=== PATIENT | male | born 1960 | race Caucasian/White ===

== ENCOUNTER → 2021-08-15 08:02 | Outpatient (CLI) | payer BC, SELFPAY ==
--- NOTE | ~2021-08-15 | CT_ITS ---
EXAMINATION: CT lung screening DATE: 08/15/2021 08:49 INDICATION: Personal history of tobacco dependence, current smoker with 20 pack year history TECHNIQUE: Computed tomography (CT) of the chest was performed without intravenous contrast. The dose -length product (DLP) was 299.85 mGy-cm. Automated exposure control and iterative reconstruction tech [employer] were employed. COMPARISON: None FINDINGS: There is mild emphysema. There are nodules measuring up to 2 mm in the right lung apex. The lungs are free of focal airspace opacities. There is mild dependent atelectasis of the right lung. N o pathologically enlarged thoracic lymph nodes are identified. The heart size is normal. A 1.5 cm low -density mass of the right adrenal gland is consistent with an adenoma. Calcified coronary artery ath erosclerosis is noted. There is no pleural effusion or pneumothorax. There is mild thoracic spondylos is. IMPRESSION: 1. Lung-RADS category 2: Benign appearance or behavior. Continue annual screening with noncontrast lo w-dose chest CT in 12 months. An old right fifth rib fracture is noted. Reviewed, dictated and finalized at location A. [facility] [facility] IMPRESSION: 1. Lung-RADS category 2: Benign appearance or behavior. Continue annual screeni ng with noncontrast low-dose chest CT in 12 months. An old right fifth rib frac ture is noted.
== END ==
PROVIDERS: PCP Family Medicine; Visit Provider Physician Assistant
DX: Z87.891 Personal history of nicotine dependence (principal)
CPT/HCPCS: 71271

== ENCOUNTER 2022-10-08 06:56 | Outpatient (CLI) | payer BC, SELFPAY ==
--- NOTE | ~2022-10-08 | CT_ITS ---
EXAMINATION: CT lung screening DATE: 10/08/2022 07:23 INDICATION: Personal history of nicotine dependence, current smoker with 25 pack year history TECHNIQUE: Computed tomography (CT) of the chest was performed without intravenous contrast. The dose -length product (DLP) was 317.52 mGy-cm. Automated exposure control and iterative reconstruction tech EXPO were employed. COMPARISON: 08/15/2021 FINDINGS: There is mild emphysema. Again noted are small nodules measuring up to 2 mm in the right bri ng apex. There are minimal airspace opacities in the superior segment of the right lower lobe and in the adjacent posterior right upper lobe. No pleural effusion or pneumothorax. No pathologically enlar ged thoracic lymph nodes are identified. The heart size is normal. There is calcified coronary artery atherosclerosis. A chronic low-density mass of the right adrenal gland is consistent with an adenoma . There is mild thoracic spondylosis. There is a healed posteromedial fracture of the right fifth rib . IMPRESSION: 1. Lung-RADS category 2: Benign appearance or behavior. Continue annual screening with noncontrast lo w-dose chest CT in 12 months. Reviewed, dictated and finalized at location L. IMPRESSION: 1. Lung-RADS category 2: Benign appearance or behavior. Continue annual screeni ng with noncontrast low-dose chest CT in 12 months.
== END 2022-10-08 06:57 | disposition home or self-care (01) ==
PROVIDERS: PCP Family Medicine; Visit Provider Physician Assistant
DX: Z12.2 Encounter for screening for malignant neoplasm of respiratory organs (principal); F17.210 Nicotine dependence, cigarettes, uncomplicated
CPT/HCPCS: 71271

== ENCOUNTER 2023-07-29 08:35 | Outpatient (CLI) | payer BC, SELFPAY ==
--- NOTE | 2023-07-29 08:48 | EST_ITS ---
Patient Info Name: Babar Martin Age: 62 years : 1960 Gender: Male Ht: 79 in Wt: 295 lbs BSA: 2.76 m2 HR: 76 bpm BP: 122 / 82 mmHg Heart Rhythm: Sinus Rhythm Exam Date: 07/29/2023 9:13 AM Exam Location: Echo Lab Patient Status: Outpatient Admit Date: 07/29/2023 Staff Ordering Physician: Tricia Lawrence MD Attending Provider: Tricia Lawrence MD Exercise Technologist: Tanya Moss CT Exercise Physician: Leon Ward DO Exam Type: CA stress test treadmill Study Info Indications Z82.49 - Family history of ischemic heart disease and other diseases of the circulatory system A treadmill exercise stress test was performed. Summary 1. 1. Negative Bryson exercise stress test for ischemic ST changes by ECG criteria. 2. 2. Reduced functional capacity, achieving 7 METs of workload. 3. 3. Appropriate HR response to exercise. 4. 4. Appropriate HR recovery at 1 minute post exercise. 5. 5. No imaging with stress testing. 6. 6. Patient informed of the above results. Protocol: Bryson Stress ECG Details Stage: REST Duration (min): 0 min : 57 sec Speed (mph): 0.0 Grade (%): 0 HR (bpm): 78 SBP (mmHg): 122 DBP (mmHg): 82 METS: --- Stage: REST Duration (min): 5 min : 53 sec Speed (mph): 0.0 Grade (%): 0 HR (bpm): 80 SBP (mmHg): 122 DBP (mmHg): 82 METS: --- Stage: STAGE 1 Duration (min): 1 min : 0 sec Speed (mph): 1.7 Grade (%): 10 HR (bpm): 100 SBP (mmHg): 122 DBP (mmHg): 82 METS: --- Stage: STAGE 1 Duration (min): 2 min : 0 sec Speed (mph): 1.7 Grade (%): 10 HR (bpm): 109 SBP (mmHg): 122 DBP (mmHg): 82 METS: --- Stage: STAGE 1 Duration (min): 3 min : 0 sec Speed (mph): 1.7 Grade (%): 10 HR (bpm): 113 SBP (mmHg): 131 DBP (mmHg): 77 METS: --- Stage: STAGE 2 Duration (min): 1 min : 0 sec Speed (mph): 2.5 Grade (%): 12 HR (bpm): 120 SBP (mmHg): 131 DBP (mmHg): 77 METS: --- Stage: STAGE 2 Duration (min): 2 min : 0 sec Speed (mph): 2.5 Grade (%): 12 HR (bpm): 129 SBP (mmHg): 161 DBP (mmHg): 75 METS: --- Stage: STAGE 2 Duration (min): 3 min : 0 sec Speed (mph): 2.5 Grade (%): 12 HR (bpm): 136 SBP (mmHg): 161 DBP (mmHg): 75 METS: --- Stage: STAGE 3 Duration (min): 0 min : 9 sec Speed (mph): 3.4 Grade (%): 14 HR (bpm): 138 SBP (mmHg): 161 DBP (mmHg): 75 METS: --- Stage: RECOVERY Duration (min): 0 min : 50 sec Speed (mph): 0.0 Grade (%): 0 HR (bpm): 120 SBP (mmHg): 170 DBP (mmHg): 60 METS: --- Stage: RECOVERY Duration (min): 1 min : 50 sec Speed (mph): 0.0 Grade (%): 0 HR (bpm): 107 SBP (mmHg): 170 DBP (mmHg): 60 METS: --- Stage: RECOVERY Duration (min): 2 min : 50 sec Speed (mph): 0.0 Grade (%): 0 HR (bpm): 97 SBP (mmHg): 143 DBP (mmHg): 64 METS: --- Stage: RECOVERY Duration (min): 3 min : 20 sec Speed (mph): 0.0 Grade
== END 2023-07-29 08:36 | disposition home or self-care (01) ==
PROVIDERS: PCP Family Medicine; Visit Provider Family Medicine
DX: Z13.6 Encounter for screening for cardiovascular disorders (principal); E78.2 Mixed hyperlipidemia; Z82.49 Family history of ischemic heart disease and other diseases of the circulatory system
CPT/HCPCS: 93017

== ENCOUNTER 2023-10-10 08:07 | Outpatient (CLI) | payer BC, SELFPAY ==
--- NOTE | ~2023-10-10 | CT_ITS ---
CT Scan of the Chest without Contrast: Clinical Indication: Lung cancer screening, personal history of nicotine dependence Technique: Contiguous sections were acquired throughout the chest without intravenous contrast. Dose reduction technique was used on this scan by utilizing automated exposure control and iterative recon struction technique. The dose-length product (DLP) was 390.38 mGy-cm. COMPARISON: 10/08/2022 Findings: There is no evidence of any significant mediastinal, hilar or axillary lymphadenopathy. Coronary josef ry calcifications are present. There is no evidence of pleural or pericardial effusion. Probable focal chronic scarring or interstitial change in the posterior right upper lobe and superior segment right lower lobe, unchanged. No suspicious or new pulmonary nodule evident. Images through the upper abdomen reveal stable 1.2 cm right adrenal nodule. Impression: Lung RADS 2: Benign appearance. 12 month follow-up screening CT advised. Reviewed, dictated and finalized at [facility]. Impression: Lung RADS 2: Benign appearance. 12 month follow-up screening CT advised.
== END 2023-10-10 08:08 | disposition home or self-care (01) ==
PROVIDERS: PCP Family Medicine; Visit Provider Physician Assistant
DX: Z12.2 Encounter for screening for malignant neoplasm of respiratory organs (principal); Z87.891 Personal history of nicotine dependence
CPT/HCPCS: 71271

== ENCOUNTER 2024-10-19 06:32 | Outpatient (CLI) | payer BC, SELFPAY ==
--- NOTE | ~2024-10-19 | CT_ITS ---
CT Scan of the Chest without Contrast: Clinical Indication: Lung cancer screening, nicotine dependence Technique: Contiguous sections were acquired throughout the chest without intravenous contrast. Dose reduction technique was used on this scan by utilizing automated exposure control and iterative recon struction technique. The dose-length product (DLP) was 346.97 mGy-cm. COMPARISON: 2624 Findings: There is no evidence of any significant mediastinal, hilar or axillary lymphadenopathy. Coronary josef ry calcifications are present. There is no evidence of pleural or pericardial effusion. Stable mild groundglass opacity which may be related to chronic changes related to adjacent right rib fracture at the superior segment right lower lobe and posterior aspect of the right upper lobe. No d iscrete pulmonary nodule. Images through the upper abdomen reveal stable right adrenal nodule. Impression: Lung RADS 2: Benign appearance. 12 month follow-up screening CT advised. Reviewed, dictated and finalized at [facility]. Impression: Lung RADS 2: Benign appearance. 12 month follow-up screening CT advised.
--- OUTSIDE RECORDS SUMMARY | 2024-10-19 06:38 | XMS_ITS | Continuity of Care Document ---
Author Organization [facility] actice Address [address] [place] [address] Phone Care Team Providers Care Watch Engine Operator Name Role Phone Kendrick Armando Unavailable Unavailable Allergies, Adverse Reactions, Alerts Substance Reaction Status Criticality No Known allergies Medications Medication Instructions Dosage Effective Dates (start - stop) Status Comments Flagyl 500 mg Tab 4 tablets stat - Act mikie Procedures Procedure Date Office/outpatient visit, [facility] [place], expanded p janie Advance Directives Directive Yes / No Effective Date File Name No Information Encounters Encounter Description Practice Location Reason(s) For Visit Diagnoses Date Provider Providers Copied on Encounter [facility], [address], [place], [id number], tel:[phone] [facility] No Information Feb- 7 Jabier Marks. [address] [facility] [employer], [id number] , [place]. tel: [phone] Office/outpat ient visit, new, expanded prob [facility], [address] [facility] [place], [id number], [place] tel:[phone] [facility] std check (chief complaint) Tobacco abuse Feb- 7 Jabier Marks. [address] [facility], [id number] , [place]. tel: [phone] Family History Family Member Type Diagnosis Age At Onset Paternal grandmother Problem (finding) Diabetes mellit Paternal grandfather Problem (finding) malignant neopl asm of liver Father Problem (finding) cancer of the esophagus Payers Payer name Insurance type Covered democrat ID Tatiana singh(s) [facility] PPO/POS [id number] Social History Type Description Quantity Date Captured [...] Goal Cognitive assessment. Due on due Goal H&P. Due on due Goal Lipid Panel. Due on 007 due Goal TD Vaccine. Due on 07 due History Of Present Illness Encounter Date Complaint History Of Prese nt Illness No Information Functional Status Date Functional Assessmen t No Information Instructions Date Instruction Additional Infor mation No Information Assessments Type Assessment Date No Information Patient Care Teams Name Effective Dates (start - stop) Status Members No Information
== END 2024-10-19 06:33 | disposition home or self-care (01) ==
PROVIDERS: PCP Family Medicine; Visit Provider Family Medicine
DX: Z12.2 Encounter for screening for malignant neoplasm of respiratory organs (principal); F17.210 Nicotine dependence, cigarettes, uncomplicated
CPT/HCPCS: 71271

== ENCOUNTER 2025-02-18 02:47 | Day surgery (SDC) | payer BC, SELFPAY ==
--- OUTSIDE RECORDS SUMMARY | 2007-02-26 09:17 | XMS_ITS | Continuity of Care Document ---
Author Organization [facility] actice Address [address] [place] [address] Phone Care Team Providers Care Cabinetmaker Supervisor Name Role Phone Kendrick Armando Unavailable Unavailable Allergies, Adverse Reactions, Alerts Substance Reaction Status Criticality No Known allergies Medications Medication Instructions Dosage Effective Dates (start - stop) Status Comments Flagyl 500 mg Tab 4 tablets stat - Act mikie Procedures Procedure Date Office/outpatient visit, [facility], expanded p janie Advance Directives Directive Yes / No Effective Date File Name No Information Encounters Encounter Description Practice Location Reason(s) For Visit Diagnoses Date Provider Providers Copied on Encounter [facility], [address], [place], [id number], tel:[phone] [facility] No Information Feb- 7 Jabier Marks. [address] [facility] [place], [id number] , [place]. tel: [phone] Office/outpat ient visit, new, expanded prob [facility], [address] [facility] [place] [id number], [place] tel:[phone] [facility] std check (chief complaint) Tobacco abuse Feb- 7 [facility]. [address] [facility] [id number] , [place]. tel:[phone] Family History Family Member Type Diagnosis Age At Onset Paternal grandmother Problem (finding) Diabetes mellit Paternal grandfather Problem (finding) malignant neopl asm of liver Father Problem (finding) cancer of the esophagus Payers Payer name Insurance type Covered democrat ID Authoramando singh(s) [facility] PPO/POS [id number] Social History Type Description Quantity Date Captured Comments Sex Male Smoking Status No Information Chief Complaint And Reason For Visit No Information Reason For Referral Reason For Referral No Information Plan Of Treatment Date Type Action Status Goal Zostavax. Due on due Goal Sigmoidoscopy. Due on due Goal Zoster vaccine. Due on due Goal Tdap. Due on due Goal HPV (3rd). Due on due Goal HPV (2nd). Due on due Goal PSA. Due on due Goal PPD (TST). Due on due Goal Pneumococcal vaccine. Due on due Goal Influenza vaccine. Due on due Goal HPV (1st). Due on 5 due Goal FOBT. Due on due Goal Fluoride varnish application . Due on due Goal Annual Physical Exam. Due on due Goal Diabetes screening. Due on due Goal Abdominal Ultrasound. Due on due Goal Depression screening. Due on due Goal Colonoscopy. Due on 015 due Goal Cognitive assessment. Due on due Goal TD Vaccine. Due on 07 due Goal H&P. Due on due Goal Lipid Panel. Due on 007 due History Of Present Illness Encounter Date Complaint History Of Prese nt Illness No Information Functional Status Date Functional Assessmen t No Information Instructions Date Instruction Additional Infor mation No Information Assessments Type Assessment Date No Information Patient Care Teams Name Effective Dates (start - stop) Status Members No Information
[2025-02-07 14:19] VITALS: BMI 33.0
--- OUTSIDE RECORDS SUMMARY | 2025-02-18 02:50 | XMS_ITS ---
Author Organization Unknown ENCOUNTERS Encounter Performer Location Date Diagnosis Diagnosis Status Outpatient [facility] [address] [place] [id number] Outpatient [facility] [address] [place] [id number] [facility] Out[facility] [address] [place] [address] [id number] [facility] [address] [place] [address] [id number] [facility] Out[facility] [address] [place] [id number] [facility] *Note: Encounters from your own facility or health system may be excluded. Allergies, Adverse Reactions, Alerts Allergen Type Severity Identification Date varenicline drug allergy 4 [id number] Medications Name Date Quantity Days Supplied GPI Number
[2025-02-18 11:14] VITALS: BP 127/73; PULSE 88; RESP 20; TEMP 36.4; O2SAT 95; BMI 32.3
[2025-02-18] MEDS: LACTATED RINGERS 1,000 ML 150 ML IV CONT (11:21)
--- NOTE | 2025-02-18 11:45 | P.PNAN_ITS ---
Anes - Initial Pre Proc Eval Procedure: Operation Date: 02/18/25 12:30 Proposed Procedures p Screening Colonoscopy - Antonio Gonzales MD Date/Time: 02/18/25 11:45 Surgeon: Antonio Gonzales MD Pre Op Diagnosis: Personal history of colon polyps, unspecified Patient Data Age: 64 Gender: M Height: 2.01 m Weight: 130.4 kg Last Vital Signs Temp 36.4 C 02/18/25 11:14 Pulse 88 02/18/25 11:14 Resp 20 02/18/25 11:14 BP 127/73 02/18/25 11:14 Pulse Ox 95 02/18/25 11:14 O2 Del Method Room Air 02/18/25 11:14 Allergies Allergy/AdvReac Type Severity Reaction Status Date / Time No Known Allergies Allergy Verified 02/18/25 11:12 Home Medications ?Medication ?Instructions ?Recorded ?Confirmed ?Type tadalafil 5 mg tablet (Cialis) 5 mg PO DAILY #30 tabs 04/22/19 02/07/25 Rx aspirin 81 mg tablet,delayed 81 mg PO DAILY 04/20/20 0 02/18/25 History release (Adult Aspirin Regimen) vitamin E (dl, acetate) 180 mg 180 mg PO DAILY 2 02/18/25 History (400 unit) capsule atorvastatin 20 mg tablet 20 mg PO DAILY #90 tabs 01/1402/18/25 Rx Patient hx anesthesia problems: none Family hx anesthesia problems: none Results Review: All pre-operative results and documents have been reviewed as part of the pre- operative evaluation. [facility] Past Medical History Medical History (Updated 02/17/25 @ 15:53 by Cory Machuca DO) Mixed hyperlipidemia Family History Family History Grandparent Diabetes mellitus Family history of primary malignant neoplasm of liver Mother Hypertension Family history of elevated blood lipids Father Family history of malignant neoplasm of stomach, Onset Age: 51 Social History Social History (Updated 11/18/24 @ 10:58 by Helen Saldaña MA) Smoking packs per day: 0.25 Smoking cigarettes per day: 5.0 Years smoked: 30 Smoking pack-years: 7.50 Smoking status: Current every day smoker Tobacco type: cigarettes Second hand tobacco smoke exposure: No Additional smoking assessment comments: 2005 thru 2009 stopped smoking then started back up Alcohol intake: current Drinks per week: 4 Substance use: former Substance use type: does not use Do You Feel Safe in your Home?: Yes Lack of Transportation: No Lack of Food: Never True Current Housing: I Have Housing Concerned About Future Housing: No Difficulty Paying Gas/Electric Bills: No Difficulty Paying for Meds: No Currently Unemployed: No Education: Bachelor's Degree Difficulty w/ Childcare or Family Care: No Living arrangements: with family Occupation/Education: occupation Gender identity (if verbalized by the patient): Male Spiritual care concerns: No Anes - Eval Final PreProcedure Day of Procedure 02/18/25 11:45 Patient weight: obese Heart: regular rate and rhythm Lungs: clear to auscultation Airway: Mallampati scale class II Neurological: alert and oriented Last oral intake: >/= 8 hours ASA classification: II Emergent: no Anesthetic plan: proceed Anesthesia type and monitoring: general GIVS and standard monitoring Results Review: All pre-operative results and documents have been reviewed as part of the pre- operative evaluation. Informed Consent: The patient's anesthetic plan and its attendant risks and benefits were discussed with the patient/family/POA. Questions were solicited and answers provided to the satisfaction of the patient/family/POA.
--- NOTE | 2025-02-18 12:30 | PM.IMHP ---
H&P: HPI History of Present Illness Date/Time: 02/18/25 12:30 Chief Complaint: History of colon polyps Narrative: The patient has a history of colonic polyps, the last colonoscopy was 5 years ago. Review of Systems Review of Systems: All systems reviewed & are unremarkable except as noted in HPI and below PMFSH Past Medical History Medical History (Updated 02/17/25 @ 15:53 by oCry Machuca DO) Mixed hyperlipidemia Family History Family History Grandparent Diabetes mellitus Family history of primary malignant neoplasm of liver Mother Hypertension Family history of elevated blood lipids Father Family history of malignant neoplasm of stomach, Onset Age: 51 Social History Social History (Updated 11/18/24 @ 10:58 by Helen Saldaña MA) Smoking packs per day: 0.25 Smoking cigarettes per day: 5.0 Years smoked: 30 Smoking pack-years: 7.50 Smoking status: Current every day smoker Tobacco type: cigarettes Second hand tobacco smoke exposure: No Additional smoking assessment comments: 2005 thru 2009 stopped smoking then started back up Alcohol intake: current Drinks per week: 4 Substance use: former Substance use type: does not use Do You Feel Safe in your Home?: Yes Lack of Transportation: No Lack of Food: Never True Current Housing: I Have Housing Concerned About Future Housing: No Difficulty Paying Gas/Electric Bills: No Difficulty Paying for Meds: No Currently Unemployed: No Education: Bachelor's Degree Difficulty w/ Childcare or Family Care: No Living arrangements: with family Occupation/Education: occupation Gender identity (if verbalized by the patient): Male Spiritual care concerns: No Meds Home Medications and Allergies Home Medications ?Medication ?Instructions ?Recorded ?Confirmed ?Type tadalafil 5 mg tablet (Cialis) 5 mg PO DAILY #30 tabs 04/22/19 02/07/25 Rx aspirin 81 mg tablet,delayed 81 mg PO DAILY 04/20/20 02/18/25 History release (Adult Aspirin Regimen) vitamin E (dl, acetate) 180 mg 180 mg PO DAILY 04/23/22 02/18/25 History (400 unit) capsule atorvastatin 20 mg tablet 20 mg PO DAILY #90 tabs 01/27/25 02/18/25 Rx Allergies Allergy/AdvReac Type Severity Reaction Status Date / Time No Known Allergies Allergy Verified 02/18/25 11:12 Vital Signs Vital Signs - 24 hr 02/18/25 11:14 Temperature 97.6 F Pulse Rate 88 Respiratory Rate 20 Blood Pressure 127/73 Pulse Oximetry 95 Oxygen Delivery Room Air Exam Const: General: cooperative and healthy appearing Resp: Effort & Inspection: normal respiratory effort and able to speak in complete sentences Auscultation: clear to auscultation bilaterally Cardio: Rate: regular rate Rhythm: regular rhythm GI: Inspection: normal to inspection GI Palp: No No hepatosplenomegaly present Auscultation: normal bowel sounds Rectal Exam: deferred Skin: General skin exam: normal color Psych: Appearance: grossly normal Mental Status: mental status grossly normal Assessment and Plan Assessment and plan (1) Personal history of colonic polyps: Code(s): Z86.010 - Personal history of colon polyps Status: Acute Assessment and Plan: The patient is deemed a good candidate for the procedure. Consent signed. Will proceed.
[2025-02-18] MEDS: SIMETHICONE ORAL SUSPENSION 20 MG/0.3 ML 30 ML BOTTLE 0.6 ML IRRIGATION (12:42)
--- NOTE | 2025-02-18 12:59 | S_PTH ---
PATIENT: Babar Martin LOC: [facility] U#:[id number] AGE/SX: 64/M ROOM: RE02/18/[address]: Antonio Gonzales MD : 1960 BED: DIS: 02/18/2025 SPEC #: [id number] RECD: 02/18/25 14:13 STATUS: JEROME RERaul #: [id number] TABATHA: 02/18/25 12:[address]: Antonio Gonzales DEPT: [facility] Surgical RECD BY: Breanna Norton ENTERED: 02/18/25 14:14 SP TYPE: Surgical OTHR DR: Tricia Lawrence MD Tissues: A - Colon Polypectomy B - Colon Polypectomy Procedures: Hematoxylin and Eosin Stain Gross and Microscopic Level 4
[2025-02-18 13:02] VITALS: BP 85/53; PULSE 75; RESP 18; O2SAT 92
[2025-02-18 13:12] VITALS: BP 100/52; PULSE 78; RESP 15; O2SAT 95
[2025-02-18 13:22] VITALS: BP 100/56; PULSE 71; RESP 17; O2SAT 96
== END 2025-02-18 13:33 | disposition home or self-care (01) ==
PROVIDERS: PCP Family Medicine; Referring Provider Internal Medicine Gastroenterology; Visit Provider Internal Medicine Gastroenterology
PROC: 0DJD8ZZ Inspection of Lower Intestinal Tract, Via Natural or Artificial Opening Endoscopic (ICD-10-PCS; CPT 45378; principal; 2025-02-18 12:30)
DX: Z12.11 Encounter for screening for malignant neoplasm of colon (principal); D12.3 Benign neoplasm of transverse colon; D12.5 Benign neoplasm of sigmoid colon; K64.8 Other hemorrhoids; F17.210 Nicotine dependence, cigarettes, uncomplicated; E66.9 Obesity, unspecified; Z68.32 Body mass index [BMI] 32.0-32.9, adult
CPT/HCPCS: 45385; 88305; J2003; J2704; J7120

== ENCOUNTER 2025-05-31 12:30 | Outpatient (CLI) | payer BC, SELFPAY ==
--- NOTE | ~2025-05-31 | XR_ITS ---
XR lumbar spine min 4V Indication: Rt sided low back pain with sciatica onset x 4 mos Comparison: None Findings: The vertebral heights are intact. No fracture or subluxation. The disc heights are intact. Soft tissues unremarkable Impression: No acute abnormality. Reviewed, dictated and finalized at location [facility] Impression: No acute abnormality.
== END 2025-05-31 12:31 | disposition home or self-care (01) ==
LOC: GOSHIMG 12:30
PROVIDERS: PCP Family Medicine; Visit Provider Family Medicine
DX: M54.30 Sciatica, unspecified side (principal)
CPT/HCPCS: 72110